=== PATIENT | female | born 1980 | race Caucasian/White ===

== ENCOUNTER → 2016-10-11 | Outpatient (CLI) | payer OTHER ==
[~2016-10-11] MED LIST: B1/B1TAB2 PO; GARL1CAP PO; GING250C PO; LACT1CAP25 PO; tumeric
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
== END | disposition home or self-care (01) ==
LOC: PNCL 08:59
PROVIDERS: ATTEND Anesthesiology
DX: R51 Headache (principal)
CPT/HCPCS: 99214

== ENCOUNTER → 2016-11-17 | Outpatient (CLI) | payer OTHER ==
[~2016-11-17] MED LIST changes: +LIDOCAINE 2% VISCOUS 15 ML SOLUTION. ONE
--- NOTE | 2016-11-17 14:59 | PAIN ---
DATE OF SERVICE: 11/17/2016 DIAGNOSES: Right trigeminal neuralgia. HISTORY OF PRESENT ILLNESS: The patient is a 36-year-old female who returns for followup status post evaluation and worker's compensation preapproval for a trigeminal block today with a right nasal sphenopalatine ganglion approach. The patient would like to proceed with this, somewhat apprehensive again today, but would like to proceed as she still has significant right-sided facial pain from the trigeminal neuralgia. The patient reports no new motor or sensory deficits. No new changes, still significant pain, right side of the face, again present for about 2 years starting 12/2014 after injury. The patient without new changes or concerns. Rates her pain at 10 on a scale of 10 at its worst, 8 on average, is about 4 on a scale of 10 at its least. sleep at night about every 3 hours, has to reposition and take pain medication, get out of bed, change positions. The patient reports the pain is burning, cramping, aching, sharp, tight, shooting, constant, severe and unbearable in the right side of the face as documented. PHYSICAL EXAMINATION: VITAL SIGNS: Today, the patient's blood pressure 122/78, pulse 77, respirations 18, temperature 98.4 degrees Fahrenheit. Height is 5 feet, weighs 190 pounds. GENERAL: The patient is awake, alert, oriented, appropriate, very pleasant demeanor. HEENT: Head shows normocephalic, atraumatic. Extraocular movements are intact and symmetrical. The patient shows somewhat larger right eye than the left on appearance and increased lacrimation on the right eye as well as on previous exam. Extraocular movements are intact and symmetrical; however, the patient's right zygomatic arch shows tenderness with palpation and this is too on the bridge of the nose as well on the right side. No lesions. No rashes or discoloration. Oral cavity shows mucous membranes moist and pink. Dentition is intact. No lesions, rashes or abnormalities noted as well. Options were discussed with the patient and the patient's spouse who accompanies her to visit today and we will proceed with a right-sided sphenopalatine ganglion block transnasal approach. Risks were again discussed including, but not limited to bleeding, infection, possibility of spread of local anesthetic and associated numbness, seizures, local anesthetic toxicity as well as poor results regarding pain control. The patient understands and wishes to proceed. The patient will return to clinic in approximately 2 weeks for followup. She was counseled on return appointment, activity level and side effects to be aware of. DIAGNOSIS: Right trigeminal neuralgia. PROCEDURE: Right-sided transnasal sphenopalatine ganglion block using local anesthetic under sterile prep and drape. Total medications involved is viscous lidocaine 2%, a total of 4 mL. CONDITION AT DISCHARGE: Stable. The patient tolerated procedure well, had no complications. COURTNEY JACKSON MD DR: ALESSANDRO/kati JOB#: [id number] / [id number]
== END | disposition home or self-care (01) ==
LOC: PNCL 10:24
PROVIDERS: ATTEND Anesthesiology
DX: G50.0 Trigeminal neuralgia (principal); Z88.6 Allergy status to analgesic agent; Z88.2 Allergy status to sulfonamides; Z88.8 Allergy status to other drugs, medicaments and biological substances
CPT/HCPCS: 64400

== ENCOUNTER → 2016-12-08 | Outpatient (CLI) | payer OTHER ==
--- NOTE | 2016-12-08 15:10 | PAIN ---
DATE OF SERVICE: 12/08/2016 DATE OF SERVICE: 12/08/2016 DIAGNOSES: Right trigeminal neuralgia. HISTORY OF PRESENT ILLNESS: The patient is a 36-year-old female who returns for followup status post right transnasal sphenopalatine ganglion block on 11/17/2016. The patient reports no significant improvement in the pain, still significant right-sided facial pain, worse recently with some rainy weather, has been sporadically awaking her from sleep at night, but not every night. The patient actually reports the pain has been more intense over the past few days. The patient reports it as a 10 on a scale of 10 at its worst, averaging 9, at least it is a 5 usually when she is lying down or sleeping. The patient reports an aching, sharp, dull tight shooting, stabbing, cramping, burning, tingling, constant, unbearable, severe, and in qualities, the patient reports no new changes. No new difficulties with visual disturbances or other developments. PHYSICAL EXAMINATION: VITAL SIGNS: The patient's blood pressure 121/82, pulse 80, respirations 16, temperature 98.3 degrees Fahrenheit, weight is 189 pounds. GENERAL: The patient is awake, alert, oriented, appropriate, very pleasant demeanor. HEENT: Head shows normocephalic, atraumatic, slight increased lacrimation of the right eye compared to the left. Pupils equal, round, reactive to light and accommodation. Extraocular muscles are intact and symmetrical. Oral cavity: Mucous membranes moist and pink. Dentition is intact. No lesions. No rashes or sores in the oral cavity noted. NECK: Shows anterior throat supple without palpable lymphadenopathy noted. Swallow reflex is symmetrical. Neck shows full rotational motion of cervical spine. CHEST: Shows breath sounds clear to auscultation bilaterally. HEART: Shows S1 and S2 clear. NECK: Shows posteriorly cervical paraspinous musculature, nontender and symmetrical, full rotational motion of cervical spine was performed without difficulty or tenderness. With palpation over the patient's right side of the face shows some significant tenderness over the zygomatic arch and just inferior to this as well as slightly superior and over the supraorbital region with some mild allodynia in this region, but only mildly with light touch. Also, over the nasal bridge, there is some tenderness in the medial aspect of the orbital socket on the right side. No lesions or rashes. No discoloration is noted in any of this distribution with the increased pain. PLAN: Options were discussed with the patient and the patient's old chart was reviewed as her current medication regimen and updated. Current review of systems updated today as well and we will repeat a transnasal sphenopalatine ganglion block on the right side today. Risks were again discussed including, but not limited to bleeding, infection, possibility of spread of local anesthetic and numbness, also numbness in the oropharynx, possible aspiration risk post-postprocedural as well as poor results regarding pain control. The patient understands and wishes to proceed. The patient will return to clinic in approximately 2 weeks for followup, was counseled on return appointment, activity level and side effects to be aware of. DIAGNOSIS: Right trigeminal neuralgia. PROCEDURE: Right-sided sphenopalatine ganglion block, transnasal approach using sterile prep and drape. MEDICATIONS: Total of 5 mL of 2% viscous lidocaine. CONDITION AT DISCHARGE: Stable. The patient tolerated procedure well, had no complications. The patient will return to clinic in approximately 2 weeks for followup as noted. Discussed potential referral for a neurosurgical evaluation of the trigeminal nerve if not significantly improved versus buccal injection for trigeminal injection as well. COURTNEY JACKSON MD DR: ALESSANDRO/kati JOB#: [id number] / [id number]
== END | disposition home or self-care (01) ==
LOC: PNCL 11:04
PROVIDERS: ATTEND Anesthesiology
DX: G50.0 Trigeminal neuralgia (principal)
CPT/HCPCS: 64400